=== PATIENT | female | born 1965 | race Caucasian/White ===

== ENCOUNTER → 2016-09-05 | Day surgery (SDC) | payer OTHER ==
[~2016-09-05] VITALS: Ht 162.5 cm; Wt 83.5 kg
[~2016-09-05] MED LIST: AVELOX400 MG PO; CEFDINIR300 MG PO; GLYBURIDE5 MG PO; JANUVIA100 MG PO; NEXIUM40 MG PO; PREVACID30 M1 PO; PREVACID30 M2 PO; ROXICET 325 MG240 ML PO; ULTRAM50 MG PO; VICODIN ES 7501 TA1 PO; ZITHROMAX Z PA250 MG PO
--- NOTE | ~2016-09-05 | O ---
[place], [place] OPERATIVE NOTE NAME: YULI SCHWARZ UNIT #: [id number] ROOM: DOCTOR: IMER MACDONALD MD BIRTHDATE: [birth year] DOS: 09/05/2016 PREOPERATIVE DIAGNOSIS: Dermoid cyst of left face x2. POSTOPERATIVE DIAGNOSIS: Dermoid cyst of left face x2. PROCEDURE: Excisional biopsy of dermoid cyst of face. SURGEON: Dr. Macodnald. ANESTHESIA: General. INDICATION FOR PROCEDURE: The patient is a 51-year-old white female who was referred to my practice by Dr. Muhammad for evaluation and treatment of 2 cystic structures involving the left face. One is in the left mid face and the other is near the left oral commissure and slightly lateral. DESCRIPTION OF PROCEDURE: The patient was taken to the OR where general anesthesia was induced. She was positioned supine on the OR table and the left face was prepped in the standard fashion for skin surgery. The left mid facial lesion was identified first. It was infiltrated with 3 mL of 1% lidocaine with 1:100,000 epinephrine. An elliptical excision including the cyst and underlying subcutaneous tissue was excised. Skin was including excision. The excised specimen was submitted to pathology for histologic analysis. Minor bleeding was controlled with cautery. The wound was closed in a layered fashion with 3-0 Vicryl and 5-0 monofilament. Similar dissection was performed for another cyst, closer and lateral to the left oral commissure. A 2 mL of 1% lidocaine with 1:100,000 epinephrine was injected into the subcutaneous tissue. An elliptical excision of skin, cyst and the underlying subcutaneous tissue was removed and also submitted to pathology for histologic analysis. This wound was also treated with electrical cautery for minor bleeding. The wound was also closed with 3-0 Vicryl and 5-0 monofilament suture and Steri-Strips were applied to both closures. The patient was awakened and transported to PACU in satisfactory condition. [place], [place] OPERATIVE NOTE NAME: YULI SCHWARZ UNIT #: [id number] ROOM: DOCTOR: IMER MACDONALD MD BIRTHDATE: [birth year] IMER MACDONALD MD CM:OPRECORD:OPERATIVE NOTE [id number] [id number] IMER MACDONALD MD 09/06/16 1609 interface
[2016-09-05 13:09] VITALS: BP 129/84
[2016-09-05 13:24] VITALS: BP 133/87
[2016-09-05 13:39] VITALS: BP 137/87
[2016-09-05 13:54] VITALS: BP 100/58
[2016-09-05 14:07] VITALS: BP 132/77
== END | disposition home or self-care (01) ==
LOC: SDC 08-30 08:45
DX: L72.0 Epidermal cyst (principal); L57.0 Actinic keratosis; E11.9 Type 2 diabetes mellitus without complications; K21.9 Gastro-esophageal reflux disease without esophagitis; Z87.01 Personal history of pneumonia (recurrent); Z98.890 Other specified postprocedural states; Z82.49 Family history of ischemic heart disease and other diseases of the circulatory system; F17.210 Nicotine dependence, cigarettes, uncomplicated; Z88.2 Allergy status to sulfonamides; Z88.6 Allergy status to analgesic agent; Z88.8 Allergy status to other drugs, medicaments and biological substances

== ENCOUNTER 2017-03-23 15:49 | Emergency (ER) | payer OTHER ==
[~2017-03-23] VITALS: Ht 165.1 cm; Wt 78.9 kg
[2017-03-23 16:01] VITALS: BP 142/97
[2017-03-23] MEDS ORDERED: NEXIUM40 M1 PO (16:02)
[2017-03-23 16:12] LABS: BILIRUBIN NEGATIVE (NEGATIVE); BLOOD NEGATIVE (NEGATIVE); CLARITY SL CLOUDY (CLEAR); COLOR YELLOW (YELLOW); GLUCOSE 3+ (NEGATIVE); KETONE TRACE (NEGATIVE); LEUKO ESTERASE 1+ (NEGATIVE); NITRITE NEGATIVE (NEGATIVE); PH 5.5 (5.0-9.0); SPECIFIC GRAVITY 1.015 (1.005-1.030); UROBILINOGEN 0.2 E.U./dl (0.2-1.0)
[2017-03-23 16:29] LABS: BACTERIA 1+; EPITHELIAL CELLS TNTC
[2017-03-23 16:30] LABS: BASO # 0.1 10*3/uL (0.0-0.1); BASO % 0.5 % (0.0-1.0); EOS # 0.2 10*3/uL (0.0-0.4); EOS % 1.6 % (1.0-4.0); HEMOGLOBIN 15.5 g/dl (12.0-16.0); LYMPH # 2.5 10*3/uL (1.3-4.4); LYMPH % 23.6 % (27.0-41.0); MEAN CELL VOLUME 89.3 fl (81.0-99.0); MEAN CORPUSCULAR HGB 30.8 pg (27.0-31.0); MEAN CORPUSCULAR HGB CONC 34.4 g/dl (33.0-37.0); MEAN PLATELET VOLUME 11.3 fl (9.6-12.3); MONO # 0.5 10*3/uL (0.1-1.0); MONO % 4.6 % (3.0-9.0); NEUT # 7.3 10*3/uL (2.3-7.9); NEUT % 69.3 % (47.0-73.0); PLATELET COUNT AUTOMATED 249 10*3/uL (130-400); RED BLOOD COUNT 5.04 10*6/uL (4.10-5.10); RED CELL DISTRI WIDTH 11.6 % (0-14.5); WHITE BLOOD COUNT 10.6 10*3/uL (4.8-10.8)
[2017-03-23 16:45] LABS: ALBUMIN 3.6 gm/dl (3.1-4.5); ALKALINE PHOSPHATASE 139 U/L (45-117); BUN 14 mg/dl (7-24); CHLORIDE 97 mmol/L (98-107); CREATININE 0.83 mg/dL (0.55-1.02); SGOT/AST 23 IU/L (3-35); SGPT/ALT 41 U/L (12-78); SODIUM 132 mmol/L (136-145); TOTAL PROTEIN 7.5 gm/dL (6.4-8.2)
[2017-03-23 16:47] LABS: LIPASE 113 U/L (73-393)
== END 2017-03-23 19:52 | disposition home or self-care (01) ==
LOC: ED 15:49
PROVIDERS: Emergency Medicine; Physician Assistant
DX: D25.9 Leiomyoma of uterus, unspecified (principal); R10.11 Right upper quadrant pain; F17.200 Nicotine dependence, unspecified, uncomplicated; Z90.49 Acquired absence of other specified parts of digestive tract; Z98.890 Other specified postprocedural states; Z79.899 Other long term (current) drug therapy; Z88.2 Allergy status to sulfonamides; Z88.6 Allergy status to analgesic agent; Z88.5 Allergy status to narcotic agent

== ENCOUNTER 2020-08-16 10:31 | Emergency (ER) | payer OTHER ==
[~2020-08-16] VITALS: Ht 160 cm; Wt 77.1 kg
[~2020-08-16 10:31] MED LIST changes: +NEXIUM40 M1 PO
[2020-08-16 10:47] VITALS: BP 103/71
[2020-08-16] MEDS ORDERED: VIBRAMYCIN100 MG PO (11:08)
[2020-08-16] MEDS ORDERED: TYLENOL325 M1 PO (11:08)
== END 2020-08-16 11:16 | disposition home or self-care (01) ==
LOC: ED 10:31
DX: L08.89 Other specified local infections of the skin and subcutaneous tissue (principal); Z88.8 Allergy status to other drugs, medicaments and biological substances; Z88.5 Allergy status to narcotic agent; Z88.6 Allergy status to analgesic agent; Z79.899 Other long term (current) drug therapy; Z98.890 Other specified postprocedural states; Z90.722 Acquired absence of ovaries, bilateral

== ENCOUNTER → 2021-02-09 | Outpatient (CLI) | payer OTHER ==
[~2021-02-09] MED LIST changes: +TYLENOL325 M1 PO; +VIBRAMYCIN100 MG PO
== END | disposition home or self-care (01) ==
LOC: CARD 09:00
PROVIDERS: ATTEND Internal Medicine Cardiovascular Disease
DX: I20.9 Angina pectoris, unspecified (principal)